=== PATIENT | male | born 1925 ===

== ENCOUNTER → 2017-03-15 | Outpatient (CLI) | payer MEDICARE ==
[~2017-03-15] MED LIST: AMLO-511 PO; ASPI-556 PO; CYAN100092 PO; FERR-89 PO; LEFL10TA15 PO; METO25 PO; MULT-1259 PO; OMEP20 PO; RIVA1PAT9 TD; SIMV-261 PO; SITA25 PO; TRAZ-144 PO; ZOLP5 PO
[2017-03-15 13:21] VITALS: BP 129/77
== END | disposition home or self-care (01) ==
LOC: SRCNTR 13:08
PROVIDERS: ATTEND Internal Medicine
DX: I12.9 Hypertensive chronic kidney disease with stage 1 through stage 4 chronic kidney disease, or unspecified chronic kidney disease (principal); E11.22 Type 2 diabetes mellitus with diabetic chronic kidney disease; N18.9 Chronic kidney disease, unspecified; F03.90 Unspecified dementia, unspecified severity, without behavioral disturbance, psychotic disturbance, mood disturbance, and anxiety; I25.10 Atherosclerotic heart disease of native coronary artery without angina pectoris; M06.9 Rheumatoid arthritis, unspecified; A41.9 Sepsis, unspecified organism; Z95.1 Presence of aortocoronary bypass graft; Z87.891 Personal history of nicotine dependence
CPT/HCPCS: G0463